=== PATIENT | male | born 1945 | race Caucasian/White ===

== ENCOUNTER 2017-07-03 14:00 | Emergency (ER) | payer MEDICARE ==
[2017-07-03 14:08] VITALS: TEMP 98.5
--- NOTE | 2017-07-03 15:59 | XR ---
Chest x-ray with left RIBS HISTORY: Trauma and pain Correlation to prior chest x-ray 07/18/2014 Frontal view of the chest, 4 views of the left ribs submitted on a total of 5 images There is no pneumothorax or pleural effusion. Cardiomediastinal silhouette, pulmonary vascularity and sim are within normal limits. No displaced rib fracture evident. No evident airspace disease. Minim al basilar atelectatic change suspected. IMPRESSION: Bone scan could be performed for increased sensitivity to assess for nondisplaced fractur e as indicated. Minimal basilar atelectasis is suspected.
--- NOTE | 2017-07-03 15:59 | ED ---
General Adult HPI - General Chief complaint: Fall Stated complaint: Fall Time Seen by Provider: 07/03/17 14:25 Source: patient, RN notes reviewed, old records reviewed Mode of arrival: ambulatory Limitations: no limitations - History of Present Illness Initial comments: this is a 71-year-old male the ER for evaluation. Patient is presenting after slipping fall. Patient is not on blood thinners. Patient's lose consciousness. Patient slipped on ice falling onto his left side hitting his left rib indwelling of shortness of breath worse with deep breath. Worse when he twists worse when he touches his left side. Patient denies any abdominal pain no nausea or vomiting. Patient has urinated with no blood in his urine. Patient is to is complaining of left-sided chest pain. Again worse with a deep breath - Related Data Home Medications Medication Instructions Recorded Confirmed Spironolactone [Aldactone] 25 mg PO DAILY 08/08/14 07/03/17 Atorvastatin [Lipitor] 40 mg PO DAILY 07/03/17 07/03/17 Losartan Potassium [Cozaar] 25 mg PO DAILY 07/03/17 07/03/17 Metoprolol Tartrate [Lopressor] 25 mg PO BID 07/03/17 07/03/17 Previous Rx's Medication Instructions Recorded Rivaroxaban [Xarelto] 20 mg PO AC-SUPPER #30 tab 07/20/14 Allergies Allergy/AdvReac Type Severity Reaction Status Date / Time No Known Allergies Allergy Verified 07/03/17 14:12 Review of Systems ROS Statement: Those systems with pertinent positive or pertinent negative responses have been documented in the HPI. ROS Other: All systems not noted in ROS Statement are negative. Past Medical History Past Medical History: Atrial Fibrillation, Cancer, GERD/Reflux, Hypertension Additional Past Medical History / Comment(s): SKIN CANCER(BASAL), HEAD INJURY IN [place] History of Any Multi-Drug Resistant Organisms: None Reported Past Surgical History: Adenoidectomy, Tonsillectomy Additional Past Surgical History / Comment(s): skin ca, VARICOSE VEIN STRIPPING , SCHRAPNEL REMOVED FROM RT HAND (WAS IN [place]) Past Anesthesia/Blood Transfusion Reactions: No Reported Reaction Past Psychological History: No Psychological Hx Reported Smoking Status: Former smoker Past Alcohol Use History: Occasional Past Drug Use History: None Reported - Past Family History Father Family Medical History: CVA/TIA Additional Family Medical History / Comment(s): AT AGE 83 Mother Additional Family Medical History / Comment(s): HEART PROBLEMS NOT SURE WHAT TYPE General Exam Limitations: no limitations General appearance: alert, in no apparent distress Head exam: Present: atraumatic, normocephalic, normal inspection Eye exam: Present: normal appearance, PERRL, EOMI. Absent: scleral icterus, conjunctival injection, periorbital swelling ENT exam: Present: normal exam, mucous membranes moist Neck exam: Present: normal inspection. Absent: tenderness, meningismus, lymphadenopathy Respiratory exam: Present: normal lung sounds bilaterally. Absent: respiratory distress, wheezes, rales, rhonchi, stridor Cardiovascular Exam: Present: regular rate, normal rhythm, normal heart sounds. Absent: systolic murmur, diastolic murmur, rubs, gallop, clicks GI/Abdominal exam: Present: soft, normal bowel sounds. Absent: distended, tenderness, guarding, rebound, rigid Extremities exam: Present: normal inspection, full ROM, normal capillary refill. Absent: tenderness, pedal edema, joint swelling, calf tenderness Back exam: Present: normal inspection Neurological exam: Present: alert, oriented X3, CN II-XII intact Psychiatric exam: Present: normal affect, normal mood Skin exam: Present: warm, dry, intact, normal color. Absent: rash Course Vital Signs 07/03/17 14:02 Temperature 98.5 F Pulse Rate 61 Respiratory 18 Rate Blood Pressure 145/75 O2 Sat by Pulse 98 Oximetry - Reevaluation(s) Reevaluation #1: 07/03/17 15:56 patient remains in no acute distress Medical Decision Making - Medical Decision Making 71 male ER for evaluation status post fall left rib contusion, no pneumothorax noted on x-ray. Patient can be discharged patient refusing any other pain control - Radiology Data Radiology results: report reviewed (x-ray left rib with PA chest is negative for pneumothorax), image reviewed Disposition Clinical Impression: Fall, Contusion of rib on left side Disposition: HOME SELF-CARE Condition: Good Instructions: Rib Contusion (ED) Referrals: Catrina Natarajan DO [Primary Care Provider] - 1-2 days
[2017-07-03 16:30] VITALS: BP 126/70; PULSE 71; RESP 16
== END 2017-07-03 16:30 | disposition home or self-care (01) ==
LOC: EC 14:00
DX: S20.212A Contusion of left front wall of thorax, initial encounter (principal); I10 Essential (primary) hypertension; Z85.828 Personal history of other malignant neoplasm of skin; Z87.891 Personal history of nicotine dependence; Z79.899 Other long term (current) drug therapy; W00.0XXA Fall on same level due to ice and snow, initial encounter
CPT/HCPCS: 99284

== ENCOUNTER 2017-07-10 15:54 | Emergency (ER) | payer MEDICARE ==
[2017-07-10 16:11] VITALS: RESP 18
--- NOTE | 2017-07-10 17:55 | ED ---
General Adult HPI - General Chief complaint: Upper Respiratory Infection Stated complaint: coughing up blood Time Seen by Provider: 07/10/17 17:08 Source: patient Mode of arrival: ambulatory Limitations: no limitations - History of Present Illness Initial comments: Olman the relatively healthy 71-year-old male who presents to the ED today via private vehicle for reevaluation of left-sided rib pain. Patient reports that last Thursday he was walking out of a store carrying a box when he had a slip and fall, he landed on his left back and knocked the wind out of himself. Patient was able to recover and was ambulatory. He then came to the emergency department for evaluation at which time he was diagnosed with a contusion of the rib and was discharged home. Patient reports that he's been experiencing pain since that time but he's been able to manage it. He does report that yesterday he developed a productive cough which cause significant worsening of the pain in the left posterior ribs. Today the patient had 2 episodes of coughing streaked with dark blood which made him concerned and he came to the emergency department for reevaluation. Asians denies any fevers, chills, nausea, vomiting. He denies any exertional chest pain. He reports the pain is in his left posterior ribs, pain is constant , worse with deep breathing or palpation or coughing. Pain improves with tylenol , he reports he takes 1 regular strength tylenol nightly to help him sleep. - Related Data Home Medications Medication Instructions Recorded Confirmed Spironolactone [Aldactone] 25 mg PO DAILY 08/08/14 07/10/17 Atorvastatin [Lipitor] 40 mg PO DAILY 07/03/17 07/10/17 Losartan Potassium [Cozaar] 25 mg PO DAILY 07/03/17 07/10/17 Metoprolol Tartrate [Lopressor] 25 mg PO BID 07/03/17 07/10/17 Acetaminophen [Tylenol] 325 mg PO HS PRN 07/10/17 07/10/17 Previous Rx's Medication Instructions Recorded Rivaroxaban [Xarelto] 20 mg PO AC-SUPPER #30 tab 07/20/14 Acetaminophen-Codeine 300-30mg 1 tab PO Q6H PRN 7 Days #7 tablet 07/10/17 [Tylenol #3] Allergies Allergy/AdvReac Type Severity Reaction Status Date / Time No Known Allergies Allergy Verified 07/10/17 17:05 Review of Systems ROS Statement: Those systems with pertinent positive or pertinent negative responses have been documented in the HPI. ROS Other: All systems not noted in ROS Statement are negative. Constitutional: Denies: fever, chills ENT: Denies: throat pain Respiratory: Reports: cough, hemoptysis, other (LEFT chest wall pain) Cardiovascular: Reports: chest pain. Denies: palpitations, dyspnea on exertion , syncope Endocrine: Denies: fatigue Gastrointestinal: Denies: abdominal pain, nausea, vomiting Genitourinary: Denies: urgency, dysuria Musculoskeletal: Reports: back pain Skin: Denies: rash, lesions Neurological: Denies: headache Psychiatric: Denies: anxiety Hematological/Lymphatic: Reports: easy bleeding Past Medical History Past Medical History: Atrial Fibrillation, Cancer, GERD/Reflux, Hypertension Additional Past Medical History / Comment(s): SKIN CANCER(BASAL), HEAD INJURY IN [place] History of Any Multi-Drug Resistant Organisms: None Reported Past Surgical History: Adenoidectomy, Tonsillectomy Additional Past Surgical History / Comment(s): skin ca, VARICOSE VEIN STRIPPING , SCHRAPNEL REMOVED FROM RT HAND (WAS IN [place]) Past Anesthesia/Blood Transfusion Reactions: No Reported Reaction Past Psychological History: No Psychological Hx Reported Smoking Status: Former smoker Past Alcohol Use History: Occasional Past Drug Use History: None Reported - Past Family History Father Family Medical History: CVA/TIA Additional Family Medical History / Comment(s): AT AGE 83 Mother Additional Family Medical History / Comment(s): HEART PROBLEMS NOT SURE WHAT TYPE General Exam Limitations: no limitations General appearance: alert, in no apparent distress Head exam: Present: atraumatic, normocephalic Eye exam: Present: normal appearance, PERRL ENT exam: Present: normal exam, normal oropharynx Neck exam: Present: normal inspection Respiratory exam: Present: normal lung sounds bilaterally, chest wall tenderness , other (Bruise on LEFT posterior ribs, well healing). Absent: respiratory distress, wheezes, rales, rhonchi, stridor, accessory muscle use Cardiovascular Exam: Present: regular rate, normal rhythm GI/Abdominal exam: Present: soft. Absent: distended, tenderness, guarding Extremities exam: Present: normal inspection Back exam: Present: normal inspection, full ROM Neurological exam: Present: alert, oriented X3 Psychiatric exam: Present: normal affect, normal mood Skin exam: Present: warm, dry, intact Course Vital Signs 07/10/17 07/10/17 07/10/17 16:06 17:59 18:23 Temperature 98.3 F 98.2 F Pulse Rate 78 89 Respiratory 18 18 Rate Blood Pressure 138/65 154/89 O2 Sat by Pulse 96 99 Oximetry Medical Decision Making - Medical Decision Making patient seen and examined Vital signs reviewed History and physical exam concerning for possible left rib fracture Will evaluate with xrays Xray reveal a LEFT rib 7 fracture, will plan to discharge the patient home with PO Tylenol #3 nightly to help him sleep. Discussed with the patient the importance of taking deep breaths to prevent the development of pneumonia. Considering that this patient has a fracture for 7 days and has not yet developed pneumonia I do not feel that inpatient admission is warranted for pain management. I advised patient that if he develops any worsening hemoptysis or shortness of breath he needs to return to the emergency department immediately for reevaluation. All questions pertaining to care were answered to the best my ability the patient was discharged home in stable condition. Disposition Clinical Impression: Left rib fracture Disposition: HOME SELF-CARE Condition: Good Prescriptions: Acetaminophen-Codeine 300-30mg [Tylenol #3] 1 tab PO Q6H PRN 7 Days #7 tablet PRN Reason: Pain Referrals: Catrina Natarajan DO [Primary Care Provider] - 1-2 days Time of Disposition: 18:18
[2017-07-10 18:00] VITALS: BP 154/89; PULSE 89
--- NOTE | 2017-07-10 18:02 | XR ---
EXAMINATION TYPE: XR ribs LT w pa chest xray DATE OF EXAM: 07/10/2017 COMPARISON: 07/03/2017 HISTORY: Fell on the left ribs. Pain. TECHNIQUE: 5 views FINDINGS: Heart and mediastinum are normal. There are nondisplaced fractures of the left posterior la teral fifth and eighth ribs. This probably also fracture seventh rib. There is no pneumothorax. Trach ea is midline. There is slight blunting of left costophrenic angle. Thoracic spine is intact. IMPRESSION: Acute left rib fractures with mild pleural reaction at the left lung base. Normal heart. Fractures appear new compared to last exam. Normal heart. No pneumothorax.
[2017-07-10 18:24] VITALS: TEMP 98.2
== END 2017-07-10 18:23 | disposition home or self-care (01) ==
LOC: EC 15:54
DX: S22.32XD Fracture of one rib, left side, subsequent encounter for fracture with routine healing (principal); R04.2 Hemoptysis; I10 Essential (primary) hypertension; Z87.891 Personal history of nicotine dependence; Z79.899 Other long term (current) drug therapy; Z85.828 Personal history of other malignant neoplasm of skin; Z98.890 Other specified postprocedural states; W01.0XXD Fall on same level from slipping, tripping and stumbling without subsequent striking against object, subsequent encounter; Y93.89 Activity, other specified; Y92.89 Other specified places as the place of occurrence of the external cause
CPT/HCPCS: 99283

== ENCOUNTER 2020-03-27 06:15 | Day surgery (SDC) | payer MEDICARE ==
[2020-03-22 09:33] VITALS: BMI 27.1
[2020-03-27] MEDS ORDERED: BENZOCAINE SPRAY 1 CAN TOPICAL PRN (06:24)
[2020-03-27] MEDS ORDERED: fentaNYL (PF) 50 MCG/ML 2 ML AMP IVP ONE (06:24)
[2020-03-27] MEDS ORDERED: MIDAZOLAM 2 MG/2 ML VIAL IV ONE (06:24)
[2020-03-27] MEDS ORDERED: SODIUM CHLORIDE 0.9% 1,000 ML IV SCH (06:24)
[2020-03-27 06:55] VITALS: RESP 16; TEMP 98
[2020-03-27] MEDS ORDERED: SODIUM CHLORIDE 0.9% 500 ML 500 ML IV ONE (06:59)
[2020-03-27] MEDS ORDERED: LIDOCAINE 1% INJ 10MG/ML (20 ML MDV) ONE (07:25)
[2020-03-27] MEDS ORDERED: PROPOFOL 10 MG/ML 20 ML VIAL IV ONE (07:25)
[2020-03-27] MEDS: BENZOCAINE SPRAY 1 CAN TOPICAL ONE ×3 (07:35→07:43)
[2020-03-27 07:45] LABS: African American GFR (CKD) >90 (>60 ml/min/1.73 sqM); Anion Gap 6 mmol/L; Blood Urea Nitrogen 18 mg/dL (9-20); Calcium 8.8 mg/dL (8.4-10.2); Carbon Dioxide 25 mmol/L (22-30); Chloride 107 mmol/L (98-107); Glucose 111 mg/dL (74-99); Non-African American GFR(CKD) >90 (>60 ml/min/1.73 sqM); Potassium 4.3 mmol/L (3.5-5.1); Sodium 138 mmol/L (137-145)
--- NOTE | 2020-03-27 09:36 | ECHOT ---
TRANSESOPHAGEAL ECHOCARDIOGRAM TRANSESOPHAGEAL ECHOCARDIOGRAM: March 27, 2020 PERFORMING PHYSICIAN: Yannick Lau MD. PROCEDURE PERFORMED: Transesophageal echocardiogram. INDICATION: Rule out left atrial appendage thrombus and intracardiac thrombus before cardioversion. COMPLICATION: None. LEVEL OF SEDATION: Deep sedation was performed using propofol. PROCEDURE DESCRIPTION: After obtaining an informed consent, the patient was brought to the recovery suite. The patient was turned into left lateral position. A bite guard was placed after the throat was sprayed using lidocaine. Subsequently, the patient was sedated using propofol with CORRECTIONS IDENTIFICATION TECHNICIAN in the room. After that transesophageal echocardiogram was performed, using 2D echocardiogram images, color Doppler, and pulse-wave as well as continuous-wave Doppler images. The procedure was completed without any complication. FINDINGS: The left ventricular dimension and systolic function appeared to be within normal limits. The ejection fraction appeared appeared to be in the range of 50%. The right ventricle appeared to be mildly dilated with normal function. The left atrium appeared to be dilated in the moderate range. The right atrium appeared to be dilated in the in the moderate range as well. The left atrial appendage appeared to be free from any thrombus. The interatrial septum appeared to be intact without any evidence of shunt. The aortic valve is trileaflet valve without stenosis or regurgitation. The mitral valve is thickened with moderate MR. There was moderate tricuspid regurgitation and moderate pulmonic insufficiency seen. CONCLUSION: 1. No evidence of any intracardiac thrombus. 2. Intact left atrial appendage. 3. Intact interatrial septum. 4. Moderate biatrial enlargement. 5. Normal left ventricular dimension and systolic function. 6. Aortic sclerosis without stenosis or insufficiency. 7. Thickened mitral valve leaflets with moderate MR. 8. Thickened tricuspid valve leaflets with moderate TR. 9. Moderate pulmonic insufficiency. 10.No evidence of pericardial effusion. MMODL / IJN: [id number] /
--- NOTE | 2020-03-27 09:48 | CE ---
CARDIAC ELECTROPHYSIOLOGY REPORT DATE OF SERVICE: March 27, 2020 PERFORMING PHYSICIAN: Yannick Lau MD. PROCEDURE PERFORMED: Cardioversion of atrial fibrillation. COMPLICATION: None. LEVEL OF SEDATION: Deep sedation was performed using propofol. PROCEDURE DESCRIPTION: After a transesophageal echocardiogram was performed and left atrial appendage thrombus was ruled out, we pursued cardioversion. The patient cardioverted from atrial fibrillation to normal sinus mechanism using 200 joules on first attempt. CONCLUSION: Successful cardioversion of atrial fibrillation to normal sinus mechanism using 200 joules on first attempt. MMODL / IJN: [id number] /
[2020-03-27 10:03] VITALS: BP 102/67; PULSE 61
== END 2020-03-27 10:04 | disposition home or self-care (01) ==
LOC: CATHCVL 06:15
PROVIDERS: ATTEND Internal Medicine Interventional Cardiology
DX: I48.0 Paroxysmal atrial fibrillation (principal); I08.8 Other rheumatic multiple valve diseases; I42.8 Other cardiomyopathies; I10 Essential (primary) hypertension; E78.5 Hyperlipidemia, unspecified; K21.9 Gastro-esophageal reflux disease without esophagitis; Z87.891 Personal history of nicotine dependence; Z79.899 Other long term (current) drug therapy; Z79.01 Long term (current) use of anticoagulants; Z98.890 Other specified postprocedural states
CPT/HCPCS: 93312; 93320; 93325; 92960; 93005; 80048; J2001; J2704

== ENCOUNTER → 2024-11-16 | Outpatient (CLI) | payer MEDICARE ==
[2024-11-16 14:56] LABS: HCT 44.5 % (39.6-50.0); HGB 14.3 g/dL (13.0-17.0); MCH 32.1 pg (27.0-32.0); MCHC 32.1 g/dL (32.0-37.0); MCV 99.8 FL (80.0-97.0); Mean Platelet Volume 11.3 FL (9.5-12.2); NRBC Per 100 WBC 0 X 10*3/uL (0.00-0.01); Platelet Count 174 X 10*3/uL (140-440); RBC 4.46 X 10*6/uL (4.40-5.60); RDW 12.2 % (11.5-14.5); WBC 4.53 X 10*3/uL (4.50-10.00)
[2024-11-16 15:32] LABS: Blood Urea Nitrogen 9.6 mg/dL (9.0-27.0); Carbon Dioxide 27.3 mmol/L (21.6-31.8); Chloride 105 mmol/L (96-109); Potassium 5.2 mmol/L (3.5-5.5); Sodium 141 mmol/L (135-145)
== END | disposition home or self-care (01) ==
LOC: LABWHC1 08:33
PROVIDERS: ATTEND Internal Medicine Interventional Cardiology
DX: Z01.812 Encounter for preprocedural laboratory examination (principal); I25.10 Atherosclerotic heart disease of native coronary artery without angina pectoris
CPT/HCPCS: 36415; 80051; 82565; 84520; 85027

== ENCOUNTER 2024-11-25 09:47 | Day surgery (SDC) | payer MEDICARE ==
[~2024-11-25 09:47] MED LIST: ALPRAZolam 0.25 MG TAB PO PRN; NITROGLYCERIN SL TABS 0.4 MG TAB SUBLINGUAL PRN
[2024-11-25] MEDS: IV FLUID CONTINUATION 1,000 ML IV ONE (10:27)
[2024-11-25] MEDS: ASPIRIN 325 MG TAB PO STA (10:35)
[2024-11-25] MEDS: SODIUM CHLORIDE 0.9% 1,000 ML in EMPTY BAG 1 BAG IV SCH (10:36)
[2024-11-25] MEDS: HEPARIN SODIUM,PORCINE 10,000 UNIT in SODIUM CHLORIDE 0.9% 1,000 ML IRRIGATION PRN (12:40)
[2024-11-25] MEDS: HEPARIN SODIUM,PORCINE (1 ML) 2,500 UNIT in SODIUM CHLORIDE 0.9% 250 ML IRRIGATION PRN (12:40)
[2024-11-25] MEDS: MIDAZOLAM 2 MG/2 ML VIAL IVP ONE (13:05)
[2024-11-25] MEDS: LIDOCAINE 1% INJ 10MG/ML (20 ML MDV) SQ ONE (13:07)
[2024-11-25] MEDS: VERAPAMIL SYRINGE (5 MG/10 ML) INTRAARTER ONE (13:08)
[2024-11-25] MEDS: HEPARIN SODIUM 1,000 UN/ML (10ML VL) IV ONE (13:10)
[2024-11-25] MEDS: TICAGRELOR 90 MG TAB PO ONE (13:18)
[2024-11-25] MEDS: MORPHINE SULFATE 4 MG/ML SYRINGE IVP ONE (13:29)
[2024-11-25] MEDS: IOPAMIDOL-370 100ML BTL INJ ONE ×2 (13:49→14:14)
[2024-11-25] MEDS: NITROGLYCERIN 1000MCG/10ML SYRINGE INTRACORON ONE (14:07)
[2024-11-25] MEDS ORDERED: ZOLPIDEM 5 MG TAB PO PRN (14:15)
[2024-11-25] MEDS ORDERED: ATROPINE SULFATE 0.1 MG/ML 10ML SYRINGE IV PRN (14:15)
[2024-11-25] MEDS ORDERED: RX INFO: IV CONTRAST WAS GIVEN 1 EACH MISC MISCELLANE PRN (14:15)
[2024-11-25] MEDS ORDERED: MAG HYDROX/AL HYDROX/SIMETH 30 ML CUP PO PRN (14:15)
[2024-11-25] MEDS: ATORVASTATIN 80 MG TAB PO STA (15:13)
[2024-11-25] MEDS: SODIUM CHLORIDE 0.9% 1,000 ML IV SCH (15:49)
[2024-11-25] MEDS: RIVAROXABAN 15 MG TAB PO SCH (20:20)
[2024-11-25] MEDS: METOPROLOL TARTRATE 25 MG TAB PO SCH (20:20)
--- NOTE | 2024-11-25 20:36 | P.PCN ---
Date of Procedure: 11/25/24 Operative Findings: Heart catheterization and percutaneous coronary intervention Performing physician Yannick Mari MD Procedure performed 1. Selective right and left heart catheterization 2. Successful stenting of the proximal LAD using 3.0 x 23 mm Xience ROGER which was postdilated using 3.5 mm NC balloon with an excellent angiographic results and reduction of stenosis from 90% to 0% 3. Adjunctive use of IVUS and lithotripsy balloon 4. Ultrasound-guided access of the right radial artery Indication This is a 78-year-old gentleman who was seen in the office recently for further evaluation of chest discomfort concerning for angina Approach Right radial artery Complication None Level of sedation Moderate to sedation length of 62 minutes Procedure description After obtaining an informed consent the patient was brought to the cardiac Histotechnician with the right radial artery was cannulated using about the puncture technique under ultrasound guidance the micropuncture wire passed easily then I placed a 6 Croatian 11 cm sheath at the right radial artery. At that point anticoagulation was initiated using heparin with continuous ACT monitoring and also the patient was given 2 mg of verapamil intra-arterial. Selective right and left coronary angiogram performed using JR4 angio 3.5 catheters. Left heart catheterization was not performed. After that we decided to intervene on the LAD. Anticoagulation was continued using heparin with continuous ACT monitoring. Subsequently I did engage the left main using JL 3.5 guiding catheter. I did wired the LAD using a whisper wire. Attempting wiring the diagonal branch using a run-through wire was unsuccessful and also attempting wiring it using a w hisper wire was unsuccessful so at that point I left the body while in the LAD. I did IVUS of the LAD which showed a diameter around 3 mm with heavily calcified vessel. Attempting advancing a 2.0 x 12 mm score flex balloon was unsuccessful but was successful after I pulled the body wire out and that was the whisper wire and left the run-through wire and the use GuideLiner. Then I did balloon the LAD using 2.5 mm NC balloon. The lesion did not open up in spite of using NC balloon at higher pressure and at that point I decided to use lithotripsy balloon. The balloon was prepped and advanced over the run-through wire to the mid LAD what I did shockwave of the LAD multiple times and a 4 and 6 rodger. After that I was able to advance a 3.0 x 23 mm stent where the stent was positioned under fluoroscopy guidance and deployed under fluoroscopy guidance. Postdilatation of the stent was performed using 3.5 mm balloon with final angiogram showing excellent angiographic results. At that point the procedure was completed with no complication Selective coronary angiogram The RCA is a large-caliber vessel and the dominant vessel with a focal lesion involving the midportion appears to be in the range of 40 to 50% The left main appears to be calcified with mild disease only The LCx is a large-caliber vessel nondominant vessel with mild disease only The LAD has ostial lesion appears to be in the range of 30 to 40% and mid calcified focal lesion appears to be in the range of 90 to 95% Conclusion Calcified coronary system Critical disease involving the mid LAD. At the successful PCI of the mid LAD Intermediate disease involving the RCA Postprocedure management Dual antiplatelet therapy using aspirin and Brilinta for at least 6 months Aggressive cholesterol control Risk factors modification Follow-up with the patient
[2024-11-25] MEDS ORDERED: TICAGRELOR 90 MG TAB PO SCH (21:00)
[2024-11-26 04:57] LABS: Basophils % (A) 1 %; Eosinophils # (A) 0.1 k/uL (0-0.7); Eosinophils % (A) 1 %; HCT 41.5 % (39.0-53.0); HGB 13.5 gm/dL (13.0-17.5); Lymphocytes # (A) 0.6 k/uL (1.0-4.8); Lymphocytes % (A) 10 %; MCH 32.2 pg (25.0-35.0); MCHC 32.5 g/dL (31.0-37.0); MCV 99.2 fL (80.0-100.0); Mean Platelet Volume 8.8; Monocytes # (A) 0.4 k/uL (0-1.0); Monocytes % (A) 7 %; Neutrophils # (A) 4.3 k/uL (1.3-7.7); Neutrophils % (A) 77 %; Platelet Count 141 k/uL (150-450); RBC 4.19 m/uL (4.30-5.90); RDW 12.3 % (11.5-15.5); WBC 5.6 k/uL (3.8-10.6)
[2024-11-26 05:05] LABS: African American GFR (CKD) >90 (>60 ml/min/1.73 sqM); Anion Gap 7 mmol/L; Blood Urea Nitrogen 12 mg/dL (9-20); Calcium 8.7 mg/dL (8.4-10.2); Carbon Dioxide 22 mmol/L (22-30); Chloride 105 mmol/L (98-107); Glucose 106 mg/dL (74-99); Non-African American GFR(CKD) >90 (>60 ml/min/1.73 sqM); Potassium 3.9 mmol/L (3.5-5.1); Sodium 134 mmol/L (137-145)
[2024-11-26] MEDS: LOSARTAN 25 MG TAB PO SCH (08:26)
[2024-11-26] MEDS: ATORVASTATIN 40 MG TAB PO SCH (08:26)
[2024-11-26] MEDS: ASPIRIN 81 MG PO SCH (08:26)
[2024-11-26] MEDS: SPIRONOLACTONE 25 MG TAB PO SCH (08:26)
[2024-11-26] MEDS: TICAGRELOR 90 MG TAB PO STA (09:06)
--- NOTE | 2024-11-26 09:55 | P.DS ---
Providers Attending physician: Yannick Lau Consults: 11/25/24 14:15 Consult Physician Routine Consulting Provider: [facility] Reason/Comments: Post Interventional patient Do you want consulting provider notified?: Already Contacted Primary care physician: [facility] Course: The patient is a pleasant 78-year-old gentleman who underwent yesterday heart catheterization and PCI of the LAD He was seen and evaluated this morning with he is asymptomatic and hemodynamically stable The patient will discharge home on triple therapy including low-dose Xarelto along with Brilinta along with baby aspirin for 4 weeks subsequently dual therapy consistent of dropping the aspirin and continue P2 Y12 inhibitor along with low-dose Xarelto at 50 mg daily The patient will be seen and evaluated next week in the office Plan - Discharge Summary Discharge Rx Participant: Yes New Discharge Prescriptions: New Aspirin 81 mg PO DAILY #90 tab Ticagrelor [Brilinta] 90 mg PO BID #180 tab Rivaroxaban [Xarelto] 15 mg PO DAILY #90 tab Continue Spironolactone [Aldactone] 25 mg PO DAILY Metoprolol Tartrate [Lopressor] 25 mg PO BID Atorvastatin [Lipitor] 40 mg PO DAILY Losartan Potassium [Cozaar] 25 mg PO DAILY Discontinued Rivaroxaban [Xarelto] 20 mg PO AC-SUPPER #30 tab Discharge Medication List Spironolactone [Aldactone] 25 mg PO DAILY 08/08/14 [History] Atorvastatin [Lipitor] 40 mg PO DAILY 07/03/17 [History] Losartan Potassium [Cozaar] 25 mg PO DAILY 07/03/17 [History] Metoprolol Tartrate [Lopressor] 25 mg PO BID 07/03/17 [History] Aspirin 81 mg PO DAILY #90 tab 11/26/24 [Rx] Rivaroxaban [Xarelto] 15 mg PO DAILY #90 tab 11/26/24 [Rx] Ticagrelor [Brilinta] 90 mg PO BID #180 tab 11/26/24 [Rx] Follow up Appointment(s)/Referral(s): Yannick Lau MD [STAFF PHYSICIAN] - 1 Week (Office will call with appointment d ate and time. )
[2024-11-26] MEDS: ALPRAZolam 0.5 MG TAB PO PRN (10:24)
[2024-11-26 13:03] VITALS: BMI 27.1
[2024-11-26] MEDS ORDERED: RIVAROXABAN 20 MG TAB PO SCH (17:30)
[2024-11-26] MEDS: TICAGRELOR 90 MG TAB PO SCH (21:32)
[2024-11-27 07:46] VITALS: RESP 16; TEMP 97.7
[2024-11-27 08:56] VITALS: BP 118/77; PULSE 88
--- NOTE | 2024-11-27 11:51 | CA ---
Transthoracic Echo Report Name: Olman Lord Age: 78 Gender: M : 1945 Exam Date: 11/26/2024 11:21 Exam Location: [facility] [facility] Ht (in): 70 Wt (lb): 189 Ordering Physician: Yannick Lau MD ([id number]) Attending/Referring Phys: Registered Nurse [facility] Josefina Cruz RDCS Procedure CPT: Indications: rule out pericardial effusion, Dilated cardiomyopathy Cardiac Hx: Cath Technical Quality: Good Contrast 1: Total Dose (mL): Contrast 2: Total Dose (mL): MEASUREMENTS (Male / Female) Normal Values 2D ECHO LV Diastolic Diameter PLAX 5.1 cm 4.2 - 5.9 / 3.9 - 5.3 cm LV Systolic Diameter PLAX 3.1 cm IVS Diastolic Thickness 1.1 cm 0.6 - 1.0 / 0.6 - 0.9 cm LVPW Diastolic Thickness 1.3 cm 0.6 - 1.0 / 0.6 - 0.9 cm LV Relative Wall Thickness 0.5 RV Internal Dim ED PLAX 3.2 cm LA Systolic Diameter LX 4.3 cm 3.0 - 4.0 / 2.7 - 3.8 cm LV Diastolic Volume MOD BP 71.7 cm??? 67 - 155 / 56 - 104 cm??? LV Systolic Volume MOD BP 44.8 cm??? - 58 / 19 - 49 cm??? LV Ejection Fraction MOD BP 37.5 % >= 55 % LV Cardiac Index MOD BP 1208.1 cm???/min???m??? LV Diastolic Volume MOD 4C 66.5 cm??? LV Systolic Volume MOD 4C 42.5 cm??? LV Ejection Fraction MOD 4C 36.1 % LV Cardiac Index MOD 4C 1076.7 cm???/min???m??? LV Diastolic Length 4C 6.5 cm LV Systolic Length 4C 6.3 cm LV Diastolic Volume MOD 2C 72.7 cm??? LV Systolic Volume MOD 2C 44.5 cm??? LV Ejection Fraction MOD 2C 38.8 % LV Cardiac Index MOD 2C 1264.4 cm???/min???m??? LV Diastolic Length 2C 7.0 cm LV Systolic Length 2C 6.7 cm LA Volume 82.0 cm??? 18 - 58 / 22 - 52 cm??? LA Volume Index 39.6 cm???/m??? 16 - 28 cm???/m??? FINDINGS Left Ventricle Left ventricular ejection fraction is estimated at 35-40 %. Mildly increased septal wall thickness. Moderately decreased left ventricular ejection fraction. Moderately reduced global left ventricular systolic function. Right Ventricle Right Atrium Moderate right atrial dilatation. Left Atrium Moderately increased left atrial volume. Mildly increased left atrial area. Mitral Valve Aortic Valve Tricuspid Valve Pulmonic Valve Pericardium Minimal pericardial effusion (normal variant). Aorta CONCLUSIONS Limited echo for LVEF and pericardial effusion LVEF 35 to 40% Moderately reduced global LV systolic dysfunction Moderate biatrial dilatation Minimal pericardial effusion which appears physiological. Previewed by: Dr Omero Wild (Electronically Signed) Final Date: 27 November 2024 11:50
--- NOTE | 2024-11-27 13:02 | P.DS ---
Providers Attending physician: Yannick Lau Consults: 11/25/24 14:15 Consult Physician Routine Consulting Provider: [facility] Consult Reason/Comments: Post Interventional patient Do you want consulting provider notified?: Already Contacted Primary care physician: [facility] Course: 78-year-old gentleman who underwent a heart catheterization and PCI of the LAD on Thursday He was seen and evaluated this morning. He is asymptomatic and hemodynamically stable. The patient is going to be discharged home on triple therapy for 4 weeks and subsequently dual therapy including P2 Y12 inhibitor along with low-dose Xarelto at 15 mg daily The right radial artery site is soft and nontender with a good pulse I will follow-up with the patient next week in the office Plan - Discharge Summary Discharge Rx Participant: Yes New Discharge Prescriptions: New Aspirin 81 mg PO DAILY #90 tab Ticagrelor [Brilinta] 90 mg PO BID #180 tab Rivaroxaban [Xarelto] 15 mg PO DAILY #90 tab Continue Spironolactone [Aldactone] 25 mg PO DAILY Metoprolol Tartrate [Lopressor] 25 mg PO BID Atorvastatin [Lipitor] 40 mg PO DAILY Losartan Potassium [Cozaar] 25 mg PO DAILY Discontinued Rivaroxaban [Xarelto] 20 mg PO AC-SUPPER #30 tab Discharge Medication List Spironolactone [Aldactone] 25 mg PO DAILY 08/08/14 [History] Atorvastatin [Lipitor] 40 mg PO DAILY 07/03/17 [History] Losartan Potassium [Cozaar] 25 mg PO DAILY 07/03/17 [History] Metoprolol Tartrate [Lopressor] 25 mg PO BID 07/03/17 [History] Aspirin 81 mg PO DAILY #90 tab 11/26/24 [Rx] Rivaroxaban [Xarelto] 15 mg PO DAILY #90 tab 11/26/24 [Rx] Ticagrelor [Brilinta] 90 mg PO BID #180 tab 11/26/24 [Rx] Follow up Appointment(s)/Referral(s): Yannick Lau MD [STAFF PHYSICIAN] - 1 Week (Office will call with appointment date and time. )
== END 2024-11-27 14:07 | disposition home or self-care (01) ==
LOC: CATHCVL 09:47 → 6NMEDSUR 14:38 → CATHCVL 11-27 14:07
PROVIDERS: ATTEND Internal Medicine Interventional Cardiology
DX: I25.10 Atherosclerotic heart disease of native coronary artery without angina pectoris (principal); I48.11 Longstanding persistent atrial fibrillation; I10 Essential (primary) hypertension; E78.5 Hyperlipidemia, unspecified; I42.8 Other cardiomyopathies; I65.23 Occlusion and stenosis of bilateral carotid arteries; Z72.89 Other problems related to lifestyle; Z79.01 Long term (current) use of anticoagulants; Z79.02 Long term (current) use of antithrombotics/antiplatelets; Z79.82 Long term (current) use of aspirin; Z79.899 Other long term (current) drug therapy
CPT/HCPCS: 93308; 92978; 93458; 92972; 80048; 85025; 99152; 99153; C9600; C1769 ×2; C1894; C1887; C1753; C1725 ×3; C1761; J2250; J2270; J1644 ×3; J2003; Q9967; J2305